=== PATIENT | female | born 1945 | race Caucasian/White ===

== ENCOUNTER → 2020-03-11 | Outpatient (CLI) | payer MEDICARE ==
[~2020-03-11] MED LIST: ALBU8.5H8 INH; ASPI-496 PO; ASPI-515 PO; CEFD300C37 PO; CITA10TA8 PO; CITA40TA5 PO; CLIN300C8 PO; CLON-364 PO; CLON0.5T PO; CYCL5TAB PO; DEXL60CA2 PO; DIAZ5TAB PO; FENTANYL TRANSDERMAL TD; FLUT16SP24 NAS; LAMO100T5 PO; LORA-247 PO; LOSA50TA14 PO; LOSA50TA2 PO; LYRICA; METR500T PO; OXYC-302 PO; OXYC5TAB2 PO; PANT40TA5 PO; PRIMIDONE; TEMA15CA PO; TOPI100T24 PO
[2020-03-11 10:40] LABS: BASOPHILS # (AUTO) 0.03 x10^3/uL (0-0.1); BASOPHILS % (AUTO) 0 % (0-1); EOSINOPHILS % (AUTO) 4 % (1-7); LYMPHOCYTES # (AUTO) 1.87 x10^3/uL (1-3.4); LYMPHOCYTES % (AUTO) 32 % (22-44); MD NO; MEAN CORPUSCULAR HEMOGLOBIN 28.1 pg (27.0-34.8); MEAN CORPUSCULAR HGB CONC 31.4 g/dL (32.4-35.8); MEAN CORPUSCULAR VOLUME 89.4 fL (80-100); MEAN PLATELET VOLUME 9.3 fL (7.4-10.4); MONOCYTES # (AUTO) 0.38 x10^3/uL (0.2-0.8); MONOCYTES % (AUTO) 7 % (2-9); NEUTROPHILS % (AUTO) 57 % (42-75); PLATELET COUNT 205 x10^3/uL (130-400); RED BLOOD COUNT 4.08 x10^6/uL (3.82-5.3); RED CELL DISTRIBUTION WIDTH 14.2 % (9.6-15.2)
[2020-03-11 10:47] LABS: INTERNATIONAL NORMALIZED RATIO 0.99 (0.93-1.1); PROTHROMBIN TIME 10.5 Seconds (9.6-11.5)
[2020-03-11 10:48] LABS: MICROSCOPIC INDICATED
[2020-03-11 10:49] LABS: ALANINE AMINOTRANSFERASE 20 U/L (12-78); ALBUMIN 3.8 g/dL (3.4-5.0); ANION GAP 4 mmol/L (5-15); CALCIUM 8.5 mg/dL (8.5-10.1); CHLORIDE 110 mmol/L (98-107); CREATININE 0.71 mg/dL (0.55-1.02)
[2020-03-11 10:51] LABS: ALKALINE PHOSPHATASE 92 U/L (45-117); BILIRUBIN,TOTAL 0.2 mg/dL (0.2-1.0); TOTAL PROTEIN 7.1 g/dL (6.4-8.2)
== END | disposition home or self-care (01) ==
LOC: STAR 08:49
PROVIDERS: ATTEND Neurological Surgery
DX: Z01.811 Encounter for preprocedural respiratory examination (principal); Z01.810 Encounter for preprocedural cardiovascular examination; Z01.812 Encounter for preprocedural laboratory examination; R79.1 Abnormal coagulation profile; M48.02 Spinal stenosis, cervical region; R94.31 Abnormal electrocardiogram [ECG] [EKG]; R82.90 Unspecified abnormal findings in urine; I51.7 Cardiomegaly; I44.0 Atrioventricular block, first degree
CPT/HCPCS: 36415; 71046; 72050; 80053; 81001; 85025; 85610; 85730; 87086; 93005

== ENCOUNTER 2020-08-09 17:56 | Emergency (ER) | payer MEDICARE, MEDICAID ==
[~2020-08-09] VITALS: Ht 167.6 cm; Wt 58.0 kg
[~2020-08-09 17:56] MED LIST changes: +CITA20TA6 PO; +CYCL-259 PO; +ENOX40SY4 SQ; +LOSA25TA12 PO; -PANT40TA5 PO; +PANT40TA6 PO; +PRIM250T34 PO
--- NOTE | 2020-08-09 18:12 | NUR ---
PATIENT JIAN IVRK WITH CHIEF C/O ABD PAIN AND DIARRHEA X4 DAYS. PER EMS PATIENT HAS NOT HAD A BM SINCE YESTERDAY. PATIENT HAS A HISTORY OF C.DIFF. NO SIGNS OF ACUTE DISTRESS, CONNECTED TO CUSTODIAL MANAGER, SIDE RAILS UP X2, CALL LIGHT WITHIN REACH.
[2020-08-09] MEDS ORDERED: ONDANSETRON 2MG/ML, 2ML ONE (18:17)
[2020-08-09] MEDS ORDERED: FENTANYL PF 100 MCG/2ML ONE (18:19)
--- NOTE | 2020-08-09 18:23 | NUR ---
PATIENT TO CT.
[2020-08-09 18:24] LABS: BASOPHILS % (AUTO) 1 % (0-1); EOSINOPHILS % (AUTO) 2 % (1-7); LYMPHOCYTES % (AUTO) 27 % (22-44); MEAN CORPUSCULAR HEMOGLOBIN 27.8 pg (27.0-34.8); MEAN CORPUSCULAR HGB CONC 32.7 g/dL (32.4-35.8); MEAN PLATELET VOLUME 9.6 fL (7.4-10.4); MONOCYTES % (AUTO) 6 % (2-9); NEUTROPHILS % (AUTO) 65 % (42-75); PLATELET COUNT 194 x10^3/uL (130-400); RED BLOOD COUNT 4.41 x10^6/uL (3.82-5.3)
[2020-08-09 18:27] LABS: MD NO
[2020-08-09] MEDS ORDERED: ONDANSETRON 2MG/ML, 2ML IVPush ONE (18:30)
[2020-08-09] MEDS ORDERED: FENTANYL PF 100 MCG/2ML IVPush ONE (18:30)
[2020-08-09 18:32] LABS: ALBUMIN 3.5 g/dL (3.4-5.0); ANION GAP 7 mmol/L (5-15); CALCIUM 8.6 mg/dL (8.5-10.1); CHLORIDE 108 mmol/L (98-107)
[2020-08-09 18:36] LABS: ALANINE AMINOTRANSFERASE 16 U/L (12-78); ALKALINE PHOSPHATASE 107 U/L (45-117); BILIRUBIN,TOTAL 0.3 mg/dL (0.2-1.0)
--- NOTE | 2020-08-09 19:33 | NUR ---
ASSISTED PATIENT TO [facility] FOR URINE SAMPLE, PATIENT UNABLE TO HAVE A BM AT THIS TIME. URINE SAMPLE COLLECTED AND SENT TO LAB.
[2020-08-09 20:09] LABS: MICROSCOPIC INDICATED
--- NOTE | 2020-08-09 20:09 | NUR ---
PATIENT STATES SHE NEEDS TO EAT SOMETHING IN ORDER TO HAVE A BM, SPOKE WITH JOSE G AND OKAY TO GIVE PATIENT FOOD. FOOD AND WARM BLANKET PROVIDED TO PATIENT.
--- NOTE | 2020-08-09 20:30 | NUR ---
TASK RN: PT REPOSITIONED VS UPDATED RESTING ON GURNEY, REQ PAIN MEDICATION
--- NOTE | 2020-08-09 20:31 | NUR ---
PT NOW SAYS SHE DIDN'T KNOW HOW LONG IT HAD BEEN SINCE LAST DOSE OF MEDICATION NO LONGER WANTS MORE MEDS
[2020-08-09 22:21] VITALS: BP 110/46
--- NOTE | 2020-08-09 22:22 | NUR ---
PATIENT ASSISTED TO [facility] FOR POSSIBLE BM.
--- NOTE | 2020-08-09 22:42 | NUR ---
SPOKE WITH PATIENT'S DAUGHTER JANICE AT [phone], SHE IS GOING TO COME AND PICK PATIENT UP. [place].
--- NOTE | 2020-08-10 00:20 | NUR ---
Patient and granddaughter given discharge instructions and prescription and they have confirmed that they understand the instructions. Patient stable and wheeled out to granddaughters car.
== END 2020-08-10 00:21 | disposition home or self-care (01) ==
LOC: ED 20:57
DX: R19.7 Diarrhea, unspecified (principal); R10.84 Generalized abdominal pain; I10 Essential (primary) hypertension; Z86.73 Personal history of transient ischemic attack (TIA), and cerebral infarction without residual deficits
CPT/HCPCS: 36415; 74176; 80053; 81001; 83690; 85025; 96374; 96375; 99284; J2405; J3010